=== PATIENT | male | born 2000 | race Caucasian/White ===

== ENCOUNTER 2021-08-30 21:28 | Emergency (ER) | payer MEDICAID, SELFPAY ==
--- NOTE | ~2021-08-30 | XR_ITS ---
EXAMINATION: XR SHOULDER, RIGHT CLINICAL INFORMATION: Status post reduction COMPARISON: Prereduction images earlier today TECHNIQUE: Two views of the right shoulder. FINDINGS: Humeral head is now well seated in the glenoid fossa. I do not appreciate any residual dislocation. No obvious acute fracture XR/XR shoulder RT min 2V IMPRESSION: Relocated right humeral head. No obvious fracture.
--- NOTE | ~2021-08-30 | XR_ITS ---
EXAMINATION: XR SHOULDER, RIGHT CLINICAL INFORMATION: Possible dislocation. COMPARISON: None TECHNIQUE: Two views of the right shoulder. FINDINGS: There is anterior dislocation of the humeral head. There is no acute fracture. The right acromio clavicular joint is intact. The soft tissues are unremarkable. XR/XR shoulder RT min 2V IMPRESSION: Right anterior glenohumeral dislocation without overt fracture.
[2021-08-30 21:40] VITALS: BP 110/76; PULSE 107; RESP 20; TEMP 37.1; O2SAT 99; BMI 20.9
--- NOTE | 2021-08-30 22:22 | ED_ITS ---
HPI - Extremity Problem General Chief complaint: Extremity Problem Stated complaint: dislocated arm Time Seen by Provider: 08/30/21 22:21 Source: patient Mode of arrival: ambulatory Limitations: no limitations History of Present Illness HPI Narrative: 21-year-old male with history of right-sided shoulder dislocation in the past presents to the ER with a dislocated right shoulder. He reports the shoulder came out of socket shortly before he arrived to the hospital when he was driving. He states he was in a coughing fit when his shoulder just popped out of place. He denies any injury or trauma. He pulled over and tried to put it back in place but was unable to so he drove himself to the hospital. He reports severe pain at the site of the right shoulder. Denies any numbness or tingling. When he dislocated his shoulder for the 1st time he was also follow-up with Orthopedics but missed his appointment because he went to care home Complaint: joint pain Onset (ago): minute(s) Pain Consistency: constant Location: right and upper extremity Severity scale (1-10): >10 Quality: aching and sharp Radiation: none Relieving factors: nothing Exacerbating factors: range of motion and palpation Associated symptoms: denies other symptoms Related Data Previous Rx's Medication Instructions Recorded ibuprofen 600 mg tablet 600 mg PO Q8H PRN #20 tab 08/30/21 oxycodone 5 mg tablet 5 mg PO Q8H PRN #5 tab 08/30/21 Allergies Allergy/AdvReac Type Severity Reaction Status Date / Time No Known Allergies Allergy Unverified 01/29/20 16:52 Review of Systems Review of Systems: Constitutional: No Fever, No Chills Cardiovascular: No Chest Pain, No SOB Gastrointestinal: No Nausea, No Vomiting Musculoskeletal: + joint pain, No Myalgias Skin: No Skin Lesions, No rash Neuro: No Weakness, No Numbness Psych: Anxiety/Panic, No Depression Heme/Lymph: No Bruising, No Lymphadenopathy PMFSH Social History Social History Advance Directives: No Advance Directives Information Provided: No Physical Exam Vital Signs: Vital Signs: Last Vital Signs Temp 98.7 F 08/30/21 21:40 Pulse 107 H 08/30/21 21:40 Resp 20 08/30/21 21:40 BP 110/76 08/30/21 21:40 Pulse Ox 99 08/30/21 21:40 BMI result Body Mass Index 20.9 Appearance: Alert. Oriented X3. No acute distress. Crying and in acute pain. CVS: Normal heart rate and rhythm. Pulses normal. Respiratory: No respiratory distress. Skin: Skin warm and dry. Normal skin color. Normal skin turgor. No rashes. Extremities: Right shoulder with obvious deformity consistent with anterior shoulder dislocation. Limited ROM due to severe pain. Neurovascularly intact distally. Neuro: Oriented X 3. No motor deficit. No sensory deficit. Course Course Course Narrative: 21-year-old male presents to the ER with severe right-sided shoulder dislocation, no trauma. Recurrent, similar presentation in May. XR without fracture. Shoulder was successfully relocated with external rotation. Repeat x- ray pending patient much more comfortable. Reevaluation(s) Reevaluation #1: Repeat x-ray showed joint is relocated. Patient is in a sling and will follow- up with orthopedics for further management. Stable for DC home with pain control and shoulder mobilization. Procedures Orthopedic Joint Reduction Joint #1: Time Out Performed: No Side: right Joint Reduction Location: shoulder Analgesia: none Shoulder Technique Used (if applicable): external rotation Technique used: direct manipulation Post-reduction neuro exam: intact Post-reduction vascular: intact Post Reduction X-Ray Obtained: Yes Post Reduction X-Ray Results: reduced Splint Applied: Yes Patient Tolerated Procedure: well and no complications Critical Care Time Critical Care Time Critical Care Time: No Discharge Plan Discharge Clinical Impression: Anterior shoulder dislocation Patient Disposition: Home, Self-Care Instructions: Shoulder Dislocation (ED) Additional Instructions: Wear the sling for at least the next 2 weeks. Limit use of your right arm. Recommend follow-up with orthopedics as soon as possible. Name and number below Use ice to the area several times per day. Prescriptions: New ibuprofen 600 mg tablet 600 mg PO Q8H PRN (Reason: pain) Qty: 20 0RF oxycodone 5 mg tablet 5 mg PO Q8H PRN (Reason: severe pain (scale score 7-10)) Qty: 5 0RF Referrals: Estefany Hernandez PA-C [Physician [employer]] - 1 week (Recurrent right-sided d islocation)
[2021-08-30] MEDS: Ibuprofen 600 MG TABLET PO (22:48)
--- NOTE | 2021-08-30 22:50 | PC.NURSE ---
PT RIGHT SHOULDER PLACED BACK BY DANGELO NAN. REPEAT IMAGING TAKEN.
== END 2021-08-30 23:01 | disposition home or self-care (01) ==
LOC: HO.ED 22:28
PROVIDERS: Emergency Provider Student in an Organized Health Care Education/Training Program; PCP Nurse Practitioner Primary Care
DX: S43.004A Unspecified dislocation of right shoulder joint, initial encounter (principal); X58.XXXA Exposure to other specified factors, initial encounter; Y93.9 Activity, unspecified; Y92.9 Unspecified place or not applicable; Y99.9 Unspecified external cause status; Z79.899 Other long term (current) drug therapy
CPT/HCPCS: 23650; 73030; 99283; 99284

== ENCOUNTER 2022-03-24 12:37 | Emergency (ER) | payer MEDICAID, SELFPAY ==
--- NOTE | ~2022-03-24 | XR_ITS ---
EXAMINATION: XR SHOULDER, RIGHT CLINICAL INFORMATION: Right shoulder pain after injury. COMPARISON: None TECHNIQUE: AP external rotation, Grashey, scapular Y, and axillary views of the right shoulder. FINDINGS: There is posterior and inferior glenohumeral dislocation. No visible acute fracture or bony abnormality seen. AC joint is normal. The soft tissues are normal. XR/XR shoulder RT min 2V IMPRESSION: Posterior and inferior glenohumeral dislocation. No visible acute fracture seen.
[2022-03-24 12:41] VITALS: BP 116/68; PULSE 115; RESP 18; TEMP 36.6; O2SAT 96; BMI 24.2
== END 2022-03-24 14:31 | disposition left against medical advice (07) ==
PROVIDERS: Emergency Provider Emergency Medicine; PCP Nurse Practitioner Primary Care
DX: M25.511 Pain in right shoulder (principal); R11.10 Vomiting, unspecified
CPT/HCPCS: 73030; 99281; 99283

== ENCOUNTER 2022-06-10 12:30 | Emergency (ER) | payer MEDICAID, SELFPAY ==
[2022-06-10 12:40] VITALS: BP 130/85; PULSE 99; RESP 20; TEMP 36.8; O2SAT 100; BMI 20.9
--- NOTE | 2022-06-10 12:41 | ED_ITS ---
HPI - General Adult General Chief complaint: Urogenital-Male <DANGELO Lal - Last Filed: 06/10/22 12:42> Stated complaint: swollen penis <DANGELO Lal - Last Filed: 06/10/22 12:42> Time Seen by Provider: 06/10/22 13:16 <DANGELO Lal - Last Filed: 06/10/22 12:42> Source: patient <Zeke Parikh MD - Last Filed: 06/10/22 16:36> Mode of arrival: ambulatory <Zeke Parikh MD - Last Filed: 06/10/22 16:36> Limitations: no limitations <Zeke Parikh MD - Last Filed: 06/10/22 16:36> History of Present Illness HPI narrative: Swelling penis since this Am,able to urinate,denies fever/vomiting.He is able to urinate <Zeke Parikh MD - Last Filed: 06/10/22 16:36> Onset (ago): hour(s) (8) <Zeke Parikh MD - Last Filed: 06/10/22 16:36> Location: genitals (penis) <Zeke Parikh MD - Last Filed: 06/10/22 16:36> Radiation: non-radiation <Zeke Parikh MD - Last Filed: 06/10/22 16:36> Severity: mild <Zeke Parikh MD - Last Filed: 06/10/22 16:36> Relieving factors: none <Zeke Parikh MD - Last Filed: 06/10/22 16:36> Exacerbating factors: none <Zeke Parikh MD - Last Filed: 06/10/22 16:36> Related Data Home medications: Previous Rx's Medication Instructions Recorded ibuprofen 600 mg tablet 600 mg PO Q8H PRN pain #20 tabs 08/30/21 oxycodone 5 mg tablet 5 mg PO Q8H PRN severe pain (scale 08/30/21 score 7-10) #5 tabs cephalexin 500 mg capsule 500 mg PO Q8H #15 caps 06/10/22 <DANGELO Lal - Last Filed: 06/10/22 12:42> Allergies/adverse reactions: Allergies Allergy/AdvReac Type Severity Reaction Status Date / Time No Known Allergies Allergy Unverified 01/29/20 16:52 <DANGELO Lal - Last Filed: 06/10/22 12:42> Review of Systems Constitutional: Constitutional: Reports no additional constitutional complaints <Zeke Parikh MD - Last Filed: 06/10/22 16:36> ENT: Reports system reviewed and no additional complaints, except as documented <Zeke Parikh MD - Last Filed: 06/10/22 16:36> Cardiovascular: Cardiovascular: Reports no additional cardiovascular complaints <Zeke Parikh MD - Last Filed: 06/10/22 16:36> Hematologic/Lymphatic: Hematologic/Lymphatic: Reports no additional hematologic/lymphatic complaints <Zeke Parikh MD - Last Filed: 06/10/22 16:36> PMFSH Past Medical History PMFSH Narrative: none <Zeke Parikh MD - Last Filed: 06/10/22 16:36> Social History Social History: Social History Advance Directives: No Advance Directives Information Provided: No <DANGELO Lal - Last Filed: 06/10/22 12:42> Physical Exam ED Vital Signs: Vital Signs - 24 hr 06/10/22 12:40 06/10/22 15:29 Temperature 98.3 F 98.9 F Pulse Rate 99 73 Respiratory Rate 20 16 Blood Pressure 130/85 119/66 Pulse Oximetry 100 98 Oxygen Delivery Method Room Air Room Air BMI result Body Mass Index 20.9 <DANGELO Lal - Last Filed: 06/10/22 12:42> Vital Signs - 24 hr 06/10/22 12:40 06/10/22 15:29 Temperature 98.3 F 98.9 F Pulse Rate 99 73 Respiratory Rate 20 16 Blood Pressure 130/85 119/66 Pulse Oximetry 100 98 Oxygen Delivery Method Room Air Room Air BMI result Body Mass Index 20.9 <Zeke Parikh MD - Last Filed: 06/10/22 16:36> Const General: cooperative <Zeke Parikh MD - Last Filed: 06/10/22 16:36> Nutritional Appearance: well nourished <Zeke Parikh MD - Last Filed: 06/10/22 16:36> Orientation/consciousness: patient oriented x3 <Zeke Parikh MD - Last Filed: 06/10/22 16:36> Limitations: no limitations <Zeke Parikh MD - Last Filed: 06/10/22 16:36> HENMT Head: Yes normal to inspection <Zeke Parikh MD - Last Filed: 06/10/22 16:36> Face and sinus: Yes normal facial exam <Zeke Parikh MD - Last Filed: 06/10/22 16:36> Mouth: Normal oral and palatal mucosa present <Zeke Parikh MD - Last Filed: 06/10/22 16:36> Throat: Yes posterior oropharynx normal <MD Maryellen Goldsmith Last Filed: 06/10/22 16:36> Neck Neck: Yes normal visual inspection and Yes full ROM <Zeke Parikh MD - Last Filed: 06/10/22 16:36> Chest Chest palpation & inspection: normal inspection of the chest <Zeke Parikh MD - Last Filed: 06/10/22 16:36> Resp Effort & Inspection: normal respiratory effort <MD Maryellen Goldsmith Last Filed: 06/10/22 16:36> Auscultation: clear to auscultation bilaterally <Zeke Parikh MD - Last Filed: 06/10/22 16:36> Cardio Jugular venous distension: no JVD <MD Maryellen Goldsmith Last Filed: 06/10/22 16:36> Rate: regular rate <MD Maryellen Goldsmith Last Filed: 06/10/22 16:36> Rhythm: regular rhythm <MD Maryellen Goldsmith Last Filed: 06/10/22 16:36> GI Inspection: Yes normal to inspection <MD Maryellen Goldsmith Last Filed: 06/10/22 16:36> Palpation (GI): Soft to palpation, not firm, nontender and no guarding <MD Maryellen Goldsmith Last Filed: 06/10/22 16:36> Other: genitalia: scrotum normal ,foreskin normal,glands normal,no fimosis <Zeke Parikh MD - Last Filed: 06/10/22 16:36> Skin General skin exam: no rashes or lesions noted <Zeke Parikh MD - Last Filed: 06/10/22 16:36> Neuro General: patient oriented x3 <Zeke Parikh MD - Last Filed: 06/10/22 16:36> Course Course Course Narrative: RME performed by Bess Dao PA-C. Patient is a 22 year old male presenting to the emergency department with a swollen penis. Patient states that he woke up this morning and the foreskin of the penis was swollen. Patient states that he has never had this happen. CT NG ordered. Patient placed back in waiting room pending room availability. <DANGELO Lal - Last Filed: 06/10/22 12:42> Medical Decision Making Medical Decision Making [facility] Narrative: presented with swelling penis on exam no swelling noted UA c/w UTI will d/c on po AB <Zeke Parikh MD - Last Filed: 06/10/22 16:36> Differential Diagnosis Differential Diagnoses: The differential diagnosis associated with the presentation includes <Zeke Parikh MD - Last Filed: 06/10/22 16:36> STD/Phimosis/priapism <Zeke Parikh MD - Last Filed: 06/10/22 16:36> Lab Data [facility] Lab Attestation statement: I reviewed the patient's lab results. <Zeke Parikh MD - Last Filed: 06/10/22 16:36> Labs: Lab Results 06/10/22 06/10/22 Range/Units 13:05 13:57 Urine Color Dark Yellow Urine Appearance Clear Urine pH 6.5 (5.0-9.0) Ur Specific [place] >= 1.030 H (1.005-1.025) Urine Protein 30 (1+) H (Neg-Trace) mg/dL Urine Glucose (UA) Negative (Negative) mg/dL Urine Ketones 80 (Negative) mg/dL Urine Blood Negative (Negative) Urine Nitrite Negative (Negative) Ur Leukocyte Esterase Small (1+) H (Negative) Urine RBC 3-5 H (0-2) /HPF Urine WBC 11-20 H (0-5) /HPF Ur Squamous Epith Cells 0-2 (0-2) /HPF Urine Bacteria None Seen (None Seen) Hyaline Casts 0-2 (0-2) /LPF Chlam trachomat DNA PCR NOT DETECTED (Not Detect.) N.gonorrhoeae DNA (PCR) NOT DETECTED (Not Detect.) <DANGELO Lal - Last Filed: 06/10/22 12:42> Lab Results 06/10/22 06/10/22 Range/Units 13:05 13:57 Urine Color Dark Yellow Urine Appearance Clear Urine pH 6.5 (5.0-9.0) Ur Specific [place] >= 1.030 H (1.005-1.025) Urine Protein 30 (1+) H (Neg-Trace) mg/dL Urine Glucose (UA) Negative (Negative) mg/dL Urine Ketones 80 (Negative) mg/dL Urine Blood Negative (Negative) Urine Nitrite Negative (Negative) Ur Leukocyte Esterase Small (1+) H (Negative) Urine RBC 3-5 H (0-2) /HPF Urine WBC 11-20 H (0-5) /HPF Ur Squamous Epith Cells 0-2 (0-2) /HPF Urine Bacteria None Seen (None Seen) Hyaline Casts 0-2 (0-2) /LPF Chlam trachomat DNA PCR NOT DETECTED (Not Detect.) N.gonorrhoeae DNA (PCR) NOT DETECTED (Not Detect.) <Zeke Parikh MD - Last Filed: 06/10/22 16:36> Discharge Plan Discharge Clinical Impression: Urinary tract infection <DANGELO Lal - Last Filed: 06/10/22 12:42> Patient Disposition: Home, Self-Care <DANGELO Lal - Last Filed: 06/10/22 12:42> Additional Instructions: Follow-up with your primary care physician return to the emergency room if you worse <DANGELO Lal - Last Filed: 06/10/22 12:42> Prescriptions: New cephalexin 500 mg capsule 500 mg PO Q8H Qty: 15 0RF No Action ibuprofen 600 mg tablet 600 mg PO Q8H PRN (Reason: pain) Qty: 20 0RF oxycodone 5 mg tablet 5 mg PO Q8H PRN (Reason: severe pain (scale score 7-10)) Qty: 5 0RF <DANGELO Lal - Last Filed: 06/10/22 12:42> Referrals: Jostin Clarke MD [Physician] - 3 days <DANGELO Lal - Last Filed: 06/10/22 12:42> Interventions: ED Discharge Assessment Last Done: 06/10/22 15:48 <DANGELO Lal - Last Filed: 06/10/22 12:42> Discharge Date/Time: 06/10/22 15:48 <DANGELO Lal - Last Filed: 06/10/22 12:42>
[2022-06-10 14:07] LABS: Appearance Urine Clear; Color Urine Dark Yellow; Glucose Urine UA Negative (Negative); Leukocyte Esterase Urine Small (1+) (Negative); Nitrite Urine Negative (Negative); PH 6.5 (5.0-9.0); Specific Gravity - Urine >= 1.030 (1.005-1.025); UMIC TRIGGER UACC YES; Urine Blood Negative (Negative); Urine Ketones 80 mg/dL (Negative); Urine Protein 30 (1+) mg/dL (Neg-Trace)
[2022-06-10 14:21] LABS: Bacteria Urine None Seen (None Seen); Hyaline Casts Urine 0-2 /LPF (0-2); Squamous Epithelial Cell Urine 0-2 /HPF (0-2); UACC Culture Trigger YES
[2022-06-10 15:20] LABS: CT PCR NOT DETECTED (Not Detect.); NG PCR NOT DETECTED (Not Detect.)
[2022-06-10 15:29] VITALS: BP 119/66; PULSE 73; RESP 16; TEMP 37.2; O2SAT 98
== END 2022-06-10 15:48 | disposition home or self-care (01) ==
PROVIDERS: Physician Assistant Medical; Emergency Provider Emergency Medicine; PCP Nurse Practitioner Primary Care
DX: N39.0 Urinary tract infection, site not specified (principal)
CPT/HCPCS: 0353U; 81001; 87086; 99283

== ENCOUNTER 2022-08-14 00:17 | Emergency (ER) | payer MEDICAID, SELFPAY ==
--- NOTE | ~2022-08-14 | XR_ITS ---
EXAMINATION: XR SHOULDER, RIGHT CLINICAL INFORMATION: Pain COMPARISON: 03/24/2022 TECHNIQUE: Two views of the right shoulder. FINDINGS: Anterior dislocation of the humerus with respect to the glenoid. No fractures. Acromioclavicular alignment maintained. Soft tissues unremarkable. XR/XR shoulder RT min 2V IMPRESSION: Anterior shoulder dislocation.
[2022-08-14 00:20] VITALS: BP 106/57; PULSE 82; RESP 18; TEMP 36.7; O2SAT 99; BMI 21.7
[2022-08-14 00:58] VITALS: BP 100/54; PULSE 70; RESP 14; TEMP 36.9; O2SAT 98
--- NOTE | 2022-08-14 01:00 | ED_ITS ---
HPI - Extremity Problem General Chief complaint: Extremity Injury, Upper Stated complaint: R arm pain, injury Time Seen by Provider: 08/14/22 00:51 Source: patient Mode of arrival: ambulatory Limitations: no limitations History of Present Illness HPI Narrative: Patient 22 years old with history of recurrent shoulder dislocation at least 3 times comes here for similar feeling of dislocation right shoulder after he was wrestling with his friend. No other injuries Related Data Previous Rx's Medication Instructions Recorded ibuprofen 600 mg tablet 600 mg PO Q8H PRN pain #20 tabs 08/30/21 oxycodone 5 mg tablet 5 mg PO Q8H PRN severe pain (scale 08/30/21 score 7-10) #5 tabs cephalexin 500 mg capsule 500 mg PO Q8H #15 caps 06/10/22 Allergies Allergy/AdvReac Type Severity Reaction Status Date / Time No Known Allergies Allergy Verified 08/14/22 00:24 Review of Systems Review of Systems: Yes all other systems are reviewed and are negative [facility] Social History Social History Alcohol intake: never Substance Use Type: Marijuana Physical Exam Vital Signs: Vital Signs: Last Vital Signs Temp 98.4 F 08/14/22 00:58 Pulse 70 08/14/22 00:58 Resp 14 08/14/22 00:58 BP 100/54 L 08/14/22 00:58 Pulse Ox 98 08/14/22 00:58 O2 Del Method Room Air 08/14/22 00:58 BMI result Body Mass Index 21.7 Extrem: Shoulder/upper arm images: 1. Squared right shoulder neurovascular intact limited abduction because of Procedures Orthopedic Joint Reduction Joint #1: Side: right Joint Reduction Location: shoulder Shoulder Technique Used (if applicable): external rotation Post-reduction neuro exam: intact Post-reduction vascular: intact Post Reduction X-Ray Obtained: No Patient Tolerated Procedure: well Discharge Plan Discharge Clinical Impression: Dislocation of shoulder region Patient Disposition: Home, Self-Care Instructions: Shoulder Dislocation (ED) Additional Instructions: Wear the sling for support Avoid or lifting of right arm for next 10-14 days Follow-up with orthopedics for further management Prescriptions: No Action cephalexin 500 mg capsule 500 mg PO Q8H Qty: 15 0RF ibuprofen 600 mg tablet 600 mg PO Q8H PRN (Reason: pain) Qty: 20 0RF oxycodone 5 mg tablet 5 mg PO Q8H PRN (Reason: severe pain (scale score 7-10)) Qty: 5 0RF Referrals: Keo Larry MD [Physician] - 2 weeks
== END 2022-08-14 01:19 | disposition home or self-care (01) ==
PROVIDERS: Emergency Provider Internal Medicine; PCP Nurse Practitioner Primary Care
DX: S43.004A Unspecified dislocation of right shoulder joint, initial encounter (principal); X58.XXXA Exposure to other specified factors, initial encounter; Y93.9 Activity, unspecified; Y92.9 Unspecified place or not applicable; Y99.9 Unspecified external cause status
CPT/HCPCS: 23650; 73030; 99283; 99284

== ENCOUNTER 2022-11-22 17:54 | Outpatient (REF) | payer MEDICAID, SELFPAY | END 2022-11-22 17:55 | disposition home or self-care (01) | LOC: HO.HHCL 17:54 | PROVIDERS: Visit Provider Family Medicine | DX: N48.9 Disorder of penis, unspecified (principal) | CPT/HCPCS: 87255; 87491; 87591 ==

== ENCOUNTER 2023-02-08 15:45 | Outpatient (REF) | payer MEDICAID, SELFPAY ==
[2023-02-09 03:14] LABS: Syphilis Screen Nonreactive (Nonreactive)
[2023-02-09 03:35] LABS: CT PCR DETECTED (Not Detect.); NG PCR DETECTED (Not Detect.)
[2023-02-09 03:49] LABS: HBS Num1 20.06 mIU/mL (0-7.99); HBc Num1 0.96 S/CO (0.00-0.79); HBsAGNum1 0.36 S/CO (0.00-0.99); HIV AB/AG Nonreactive (Nonreactive); HIV Num 1 0.05 S/CO (0.00-0.99); Hepatitis B Surface Antigen Negative (Negative); ~HepC Num1 0.32 S/CO (0.00-0.79); ~Hepatitis B Surface Antibody REACTIVE (Nonreactive); ~Hepatitis C Antibody Nonreactive (Nonreactive)
[2023-02-09 04:28] LABS: HBc Num2 0.97 S/CO; HBc Num3 0.97 S/CO; Hepatitis B Core Antibody Nonreactive (Nonreactive)
== END 2023-02-08 15:46 | disposition home or self-care (01) ==
LOC: HO.HHCL 15:45
PROVIDERS: Visit Provider Emergency Medicine
DX: Z11.4 Encounter for screening for human immunodeficiency virus [HIV] (principal); N34.2 Other urethritis
CPT/HCPCS: 0353U; 36415; 86704; 86706; 86780; 86803; 87340; 87389; 87661